=== PATIENT | female | born 1970 | race Caucasian/White ===

== ENCOUNTER 2017-06-04 09:35 | Day surgery (SDC) | payer OTHER ==
[~2017-06-04 09:35] MED LIST: Buffered Lidocaine 0.9% SYRIN* 5 ML/SYR SYRINGE INTRADERM ONE
[2017-06-04] MEDS ORDERED: Buffered Lidocaine 0.9% SYRIN* 5 ML/SYR SYRINGE ONE (09:38)
[2017-06-04] MEDS ORDERED: Silver Nitrate/Potassium Nitr* 1 EA STICK ONE ×2 (11:00→11:28)
[2017-06-04] MEDS ORDERED: Lidocaine 1% INJ* 10 MG/ML 30 ML SDV ONE (11:00)
[2017-06-04] MEDS ORDERED: fentaNYL* 50 MCG/ML 2 ML VIAL (100 MCG VIAL) ONE (11:13)
[2017-06-04] MEDS ORDERED: Midazolam* 1 MG/ML 2 ML VIAL (2 MG) ONE (11:13)
[2017-06-04] MEDS ORDERED: Lidocaine 2% PF * 5 ML VIAL ONE (11:35)
[2017-06-04] MEDS ORDERED: Ketorolac INJ* 30 MG/ML 1 ML VIAL ONE (11:35)
[2017-06-04] MEDS ORDERED: Ondansetron INJ* 2 MG/ML VIAL ONE (11:35)
[2017-06-04] MEDS ORDERED: Dexamethasone IV* 4 MG/ML 1 ML (4 MG) ONE (11:35)
[2017-06-04] MEDS ORDERED: Propofol* 10 MG/ML 20 ML BTL IV PUSH ONE (11:35)
[2017-06-04] MEDS ORDERED: Famotidine IV* 10 MG/ML 2 ML (20 mg) ONE (11:35)
[2017-06-04] MEDS ORDERED: HYDROcodone/ACETAMIN 5-325 MG* 1 TAB PO PRN (11:41)
[2017-06-04] MEDS ORDERED: DiMENhydriNATE IV* 50 MG/ML VIAL IV PUSH PRN (11:41)
[2017-06-04] MEDS ORDERED: Acetaminophen TAB* 325 MG PO PRN (11:41)
[2017-06-04] MEDS ORDERED: Naloxone* 0.4 MG/ML 1 ML VIAL IV PRN (11:41)
[2017-06-04] MEDS ORDERED: PROCHLORPERAZINE INJ 5 MG/ML 2 ML VIAL IV PRN (11:41)
[2017-06-04] MEDS ORDERED: HYDROcodone/ACETAMIN 5-325 MG* 1 TAB ONE (12:13)
[2017-06-04 13:21] VITALS: BP 131/91
--- NOTE | 2017-06-05 01:17 | OP ---
OPERATIVE REPORT: DATE OF OPERATION: 06/04/17 DATE OF : 74 SURGEON: Rhonda Raines MD ANESTHESIA: General endotracheal. PRE-OP DIAGNOSIS: Retained intrauterine device arm. POST-OP DIAGNOSIS: Retained intrauterine device arm. OPERATIVE PROCEDURE: Hysteroscopy, removal of IUD arm. ESTIMATED BLOOD LOSS: Minimal. FLUIDS: Crystalloid. SPECIMEN: No specimen. DRAINS: No drains left in place. FINDINGS: The arm of the IUD was noted in the wall of the left lower uterus. It was embedded. DESCRIPTION OF PROCEDURE: After informed consent was signed, the patient was taken to the operating room, where she was given general anesthesia that was found to be adequate. She was prepped and drap ed in the dorsal lithotomy position in a candy- cane stirrup. A speculum was placed into the vagina to expose the cervix and the anterior lip of the cervix was grasped with a single tooth tenaculum. T he cervix was dilated. The uterus was measured at 5.5 cm in length and the hysteroscope was then ass embled and inserted into the uterine cavity. The IUD arm was easily noted. A grasper was inserted th rough the scope and used to grasp the arm. After several attempts, the arm was removed from the wall and removed from the uterine cavity. The hysteroscope was then removed from the cavity. The tenacul um was removed from the cervix with good hemostasis. The speculum was removed from the vagina. The patient was cleaned, placed back in the supine position, moved to the stretcher, awakened from the an esthesia and taken to the recovery room in stable condition. [id number]/[facility] #: [id number]
== END 2017-06-04 13:21 | disposition home or self-care (01) ==
LOC: OR 09:35
PROVIDERS: ATTEND Obstetrics & Gynecology
DX: T83.31XA Breakdown (mechanical) of intrauterine contraceptive device, initial encounter (principal); Z87.891 Personal history of nicotine dependence; Z85.3 Personal history of malignant neoplasm of breast
CPT/HCPCS: 36415; 86850; 86900; 86901; A9270-GY; J1100; J1885; J2250; J2405; J2704; J3010